=== PATIENT | male | born 1955 | race Caucasian/White ===

== ENCOUNTER → 2016-11-05 | Outpatient (CLI) | payer MEDICARE ==
[~2016-11-05] MED LIST: ATIVAN1 MG PO; AVPAK PRIMIDONE50 MG PO; BACTRIM DS 8001 TA1 PO; DICLOFENAC SODI75 M3 PO; FLOMAX0.4 MG PO; KEFLEX500 MG PO; LISINOPRIL-HYDR1 TA3 PO; MEDROL DOSEPAK4 MG PO; NORCO 7.5-3251 EACH PO; PAXIL20 MG PO; PAXIL30 M2 PO; PERCOCET 325 MG1 TA2 PO; PERCOCET 325 MG1 TA6 PO; VICODIN 5/500 505 MG PO
== END | disposition home or self-care (01) ==
LOC: RAD 09:20
DX: M17.0 Bilateral primary osteoarthritis of knee (principal)

== ENCOUNTER 2016-12-01 19:15 | Emergency (ER) | payer MEDICARE ==
[~2016-12-01] VITALS: Ht 170.1 cm; Wt 158.8 kg
[2016-12-01] MEDS ORDERED: NORCO 5-325 TA1 EACH PO (19:44)
[2016-12-01] MEDS ORDERED: CEPHALEXIN500 M1 PO (19:44)
== END 2016-12-01 19:56 | disposition home or self-care (01) ==
LOC: ED 19:15
DX: S61.301A Unspecified open wound of left index finger with damage to nail, initial encounter (principal); Z90.49 Acquired absence of other specified parts of digestive tract; Z87.442 Personal history of urinary calculi; Z79.899 Other long term (current) drug therapy; W45.8XXA Other foreign body or object entering through skin, initial encounter; Y93.89 Activity, other specified; Y92.89 Other specified places as the place of occurrence of the external cause; Y99.9 Unspecified external cause status

== ENCOUNTER 2018-01-15 15:06 | Emergency (ER) | payer MEDICARE ==
[~2018-01-15] VITALS: Ht 162.5 cm; Wt 158.8 kg
[~2018-01-15 15:06] MED LIST changes: +CEPHALEXIN500 M1 PO; +NORCO 5-325 TA1 EACH PO
== END 2018-01-15 17:05 | disposition home or self-care (01) ==
LOC: ED 15:06
DX: S61.213A Laceration without foreign body of left middle finger without damage to nail, initial encounter (principal); S66.109A Unspecified injury of flexor muscle, fascia and tendon of unspecified finger at wrist and hand level, initial encounter; I10 Essential (primary) hypertension; E78.5 Hyperlipidemia, unspecified; J34.9 Unspecified disorder of nose and nasal sinuses; Z79.2 Long term (current) use of antibiotics; Z79.899 Other long term (current) drug therapy; W26.0XXA Contact with knife, initial encounter; Y93.89 Activity, other specified; Y92.89 Other specified places as the place of occurrence of the external cause; Y99.8 Other external cause status

== ENCOUNTER → 2019-07-21 | Outpatient (CLI) | payer MEDICARE ==
[~2019-07-21] MED LIST changes: +B12,B-12,B 12500 MC1 PO; +CYMBALTA60 MG PO; +IBUPROFEN400 MG PO; +KEFLEX 500 MG E2 CAP PO; +LOSARTAN-HCTZ1 EACH PO; +NEURONTIN300 MG PO; +PROAIR HFA8.5 GM INH; +TRAZODONE50 MG PO; +TRELEGY ELLIPT1 EACH INH; +VENTOLIN 02.5 MG/3 M INH; +VITAMIN D32000 UNI1 PO
== END | disposition home or self-care (01) ==
LOC: US 12:19
DX: S91.101A Unspecified open wound of right great toe without damage to nail, initial encounter (principal); I70.203 Unspecified atherosclerosis of native arteries of extremities, bilateral legs; E78.5 Hyperlipidemia, unspecified; I10 Essential (primary) hypertension; L97.922 Non-pressure chronic ulcer of unspecified part of left lower leg with fat layer exposed; X58.XXXA Exposure to other specified factors, initial encounter; Y93.89 Activity, other specified; Y92.89 Other specified places as the place of occurrence of the external cause; Y99.8 Other external cause status

== ENCOUNTER → 2020-01-19 | Outpatient (CLI) | payer MEDICARE | END | disposition home or self-care (01) | LOC: RAD 01-09 07:22 | PROVIDERS: ATTEND Surgery | DX: Z01.818 Encounter for other preprocedural examination (principal) ==

== ENCOUNTER 2023-03-26 19:05 | Emergency (ER) | payer MEDICARE ==
[~2023-03-26] VITALS: Ht 165.1 cm; Wt 102.1 kg
[2023-03-26] MEDS ORDERED: Ondansetron Hydrochloride 4 MG/2 ML VIAL IV ONE (19:20)
[2023-03-26] MEDS ORDERED: SODIUM CHLORIDE 0.9% 1,000 ML IV ONE (19:20)
[2023-03-26] MEDS ORDERED: HYDROmorphONE Hydrochloride 0.5 MG/0.5 ML SYRINGE IV ONE ×2 (19:20→21:20)
[2023-03-26 19:47] LABS: BASO % 0.4 % (0.0-1.0); EOS # 0.5 10*3/uL (0.0-0.4); EOS % 6.8 % (1.0-4.0); HEMATOCRIT 42.2 % (42.0-52.0); LYMPH # 1.1 10*3/uL (1.3-4.4); LYMPH % 14.1 % (27.0-41.0); MEAN CORPUSCULAR HGB 29.9 pg (27.0-31.0); MEAN CORPUSCULAR HGB CONC 30.8 g/dl (33.0-37.0); MONO # 0.5 10*3/uL (0.1-1.0); MONO % 6.8 % (3.0-9.0); NEUT # 5.6 10*3/uL (2.3-7.9); NEUT % 71.6 % (47.0-73.0); PLATELET COUNT AUTOMATED 267 10*3/uL (130-400); RED BLOOD COUNT 4.35 10*6/uL (4.50-5.90); RED CELL DISTRI WIDTH 13.8 % (0-14.5); WHITE BLOOD COUNT 7.8 10*3/uL (4.8-10.8)
[2023-03-26 20:16] LABS: ALKALINE PHOSPHATASE 90 U/L (46-116); BUN 15 mg/dl (9-23); CHLORIDE 107 mmol/L (98-107); LIPASE 30 U/L (12-53); SGPT/ALT 10 U/L (5-49)
[2023-03-26] MEDS ORDERED: Ketorolac Tromethamine 30 MG/ML VIAL IV ONE (20:25)
[2023-03-26 20:41] LABS: BILIRUBIN Negative (Negative); BLOOD 3+ (Negative); CLARITY Clear (Clear); COLOR Yellow (Yellow); GLUCOSE Negative (Negative); KETONE Negative (Negative); LEUKO ESTERASE Trace (Negative); NITRITE Negative (Negative); PH 5.5 (4.5-8.0); SPECIFIC GRAVITY 1.015 (1.001-1.030); UROBILINOGEN 0.2 E.U./dl (0.0-1.0)
[2023-03-26 20:53] LABS: BACTERIA 1+; RBC 41-50 rbc/hpf (0-2)
[2023-03-26] MEDS ORDERED: HYDROCODONE-AC1 EAC1 PO ×2 (21:05→21:07)
[2023-03-26] MEDS ORDERED: Tamsulosin Hydrochloride 0.4 MG CAP PO ONE (22:10)
== END 2023-03-26 22:21 | disposition home or self-care (01) ==
LOC: ED 19:05
PROVIDERS: Nurse Practitioner Family
DX: N13.2 Hydronephrosis with renal and ureteral calculous obstruction (principal); E78.1 Pure hyperglyceridemia; I10 Essential (primary) hypertension; F32.A Depression, unspecified; M19.90 Unspecified osteoarthritis, unspecified site; F41.9 Anxiety disorder, unspecified; E66.01 Morbid (severe) obesity due to excess calories; Z87.442 Personal history of urinary calculi; Z79.2 Long term (current) use of antibiotics; Z79.899 Other long term (current) drug therapy; Z68.43 Body mass index [BMI] 50.0-59.9, adult; Z90.49 Acquired absence of other specified parts of digestive tract

== ENCOUNTER → 2023-05-01 | Outpatient (CLI) | payer MEDICARE ==
[~2023-05-01] MED LIST changes: +HYDROCODONE-AC1 EAC1 PO
== END | disposition home or self-care (01) ==
LOC: RAD 09:28
PROVIDERS: ATTEND Urology
DX: N20.0 Calculus of kidney (principal); R31.9 Hematuria, unspecified; I87.8 Other specified disorders of veins; M16.12 Unilateral primary osteoarthritis, left hip; Z96.641 Presence of right artificial hip joint; Z96.0 Presence of urogenital implants

== ENCOUNTER → 2023-05-29 | Outpatient (CLI) | payer MEDICARE ==
[~2023-05-29] MED LIST changes: +IOHEXOL 350 MG/ML 100 ML VIAL IV ONE
== END | disposition home or self-care (01) ==
LOC: LAB 00:11 → CT 09:00 → LAB 09:00
PROVIDERS: ATTEND Urology
DX: N20.0 Calculus of kidney (principal); N35.919 Unspecified urethral stricture, male, unspecified site; K76.89 Other specified diseases of liver; N13.30 Unspecified hydronephrosis; M47.816 Spondylosis without myelopathy or radiculopathy, lumbar region

== ENCOUNTER → 2023-07-07 | Outpatient (CLI) | payer MEDICARE ==
[~2023-07-07] MED LIST changes: -IOHEXOL 350 MG/ML 100 ML VIAL IV ONE
== END | disposition home or self-care (01) ==
LOC: RAD 13:02
PROVIDERS: ATTEND Urology
DX: N20.0 Calculus of kidney (principal); M16.12 Unilateral primary osteoarthritis, left hip

== ENCOUNTER → 2023-12-21 | Outpatient (CLI) | payer MEDICARE | END | disposition home or self-care (01) | LOC: US 13:38 | PROVIDERS: ATTEND Orthopaedic Surgery | DX: G89.18 Other acute postprocedural pain (principal); Z96.641 Presence of right artificial hip joint; Z96.651 Presence of right artificial knee joint ==